=== PATIENT | male | born 1990 | race Caucasian/White ===

== ENCOUNTER 2016-07-19 23:15 | Emergency (ER) | payer OTHER ==
[2016-07-19] MEDS ORDERED: PROPARACAINE HCL 0.5% OPHTHALMIC SOL ONE (23:22)
[2016-07-19] MEDS ORDERED: PROPARACAINE HCL 0.5% OPHTHALMIC SOL OP ONE (23:22)
[2016-07-19] MEDS ORDERED: ERYTHROMYCIN OPTHAL 1 GM TUBE LEFTEYE PRN (23:30)
[2016-07-19] MEDS ORDERED: ERYTHROMYCIN OPTHAL 1 GM TUBE ONE (23:31)
[2016-07-20 00:08] VITALS: BP 134/89; PULSE 85; RESP 20; TEMP 97.5; O2SAT 98
== END 2016-07-19 23:52 | disposition home or self-care (01) | DRG 125 ==
LOC: ED 23:15
DX: H10.9 Unspecified conjunctivitis (principal)
CPT/HCPCS: 99282